=== PATIENT | female | born 1940 | race Caucasian/White ===

== ENCOUNTER 2017-04-18 05:57 | Day surgery (SDC) | payer MEDICARE, BC ==
[2017-04-16 09:20] LABS: HEMOGLOBIN 13.3 g/dL (12.0-16.0)
[2017-04-16 09:25] LABS: BUN (BLOOD UREA NITROGEN) 15 MG/DL (6-23); CALCIUM, SERUM 9.5 MG/DL (8.5-10.4); CHLORIDE, SERUM 108 MMOL/L (96-112); CO2 (CARBON DIOXIDE) 33 MMOL/L (24-34); CREATININE 0.85 MG/DL (0.55-1.02); GFR AFRICAN AMERICAN 77 ML/MIN (>=60); GFR NON AFRICAN AMERICAN 66 ML/MIN (>=60); GLUCOSE, SERUM 97 MG/DL (60-99); POTASSIUM, SERUM 4.5 MMOL/L (3.5-5.3); SODIUM, SERUM 142 MMOL/L (135-148)
--- NOTE | ~2017-04-18 | OP ---
Record Of Operation [facility] [address] [place]. [address] NAME: QUENTIN RAMIREZ : 38 STATUS : [facility]#: [id number] AGE: 76 ADM/REG DATE : 04/18/17 MR#: [id number] REPORT SERV DATE: 04/19/17 DICTATED BY: VIRGILIO SORIANO DATE: 04/18/17 REPORT STATUS : Draft TRANSCRIBED BY: MODL DATE: 04/18/17 DATE OF PROCEDURE: 04/18/2017 PREOPERATIVE DIAGNOSIS: Sialoadenitis with sialolithiasis in the right Laurel's duct. POSTOPERATIVE DIAGNOSIS: Sialoadenitis with sialolithiasis in the right Laurel's duct. PROCEDURES: Sialolithotomy, right Laurel's duct. SURGEON: Virgilio Soriano M.D. ANESTHESIA: General endotracheal anesthesia was utilized. FINDINGS: 3 mL blood loss, 2 mm to 3 mm [place]'s duct stone noted. Sialolithotomy was performed. COMPLICATIONS: None. INDICATIONS FOR PROCEDURE: A 76-year-old female with recurrent right submandibular gland infections. CT scan of the neck showed a 2 mm to 3 mm duct in the distal floor of mouth, just adjacent to the puncta. She has indications for procedure. She was described the risks and benefits of the procedure including blood loss, infection, risk of anesthesia, pain, bleeding postoperatively, need for further operations, possibility is submandibular gland excision due to difficulty getting stone out. She voiced understanding and signed the consent. The consent was placed in the chart at the time of operation. DESCRIPTION OF PROCEDURE: The patient was wheeled to the OR suite, placed on the OR table in supine position. She was intubated and placed under general endotracheal anesthesia without difficulty. We would prep and drape the patient in a standard fashion for the procedure to be done using loupe magnification and headlights. I began using a small lacrimal duct probe set and put a smallest probe into her puncta and dilated the puncta successively with larger probes. Then using 11 blade, I cut down on the probe, the largest probe that I placed was in the duct. I identified the duct, made a further incision using a 11 blade and opened the duct, made about a 2 cm to 2.5 cm incision using the 15 blade in the floor of mouth and achieved hemostasis in this area and then I would suture the edges of the duct to the edges of the mucosa of the floor of mouth, both superiorly and inferiorly. I placed a on the duct and dilated the duct using the that identified the 2 mm to 3 mm stone. We then taken from the floor of mouth a specimen on the table to be sent for permanent path. I then placed a couple more sutures to suture the mucosa of the duct with floor of mouth and irrigated all areas achieving hemostasis. When complete, floor of mouth was dried, any instrumentation was removed including dilators and she was returned to care of the anesthesiologist. Estimated blood loss 300 mL with crystalloid given. She was subsequently awoken, extubated, and stably transferred to recovery, and no complications. The patient tolerated the procedure well. Record Of Operation [facility] [address] [facility] [place]. [address] NAME: QUENTIN RAMIREZ : 38 STATUS : [facility]#: [id number] AGE: 76 ADM/REG DATE : 04/18/17 MR#: [id number] REPORT SERV DATE: 04/19/17 DICTATED BY: VIRGILIO SORIANO DATE: 04/18/17 REPORT STATUS : Draft TRANSCRIBED BY: DEANGELO DATE: 04/18/17 STEVE/DEANGELO Virgilio Soriano M.D. / [id number] CC: Caden Oleary M.D.
[~2017-04-18 05:57] MED LIST: ASAB PO; CARTIA XT120 MG/24 PO; CEFT5 PO; FISH OIL1200 MG PO; LISINOPRIL40 MG PO; MIRALAX POWDER1 PKT PO; MULTIPLE VIT PO; NORV10 PO; TOPXL100 PO; TOPXL50 PO; VITAMIN D31000 UNIT PO; XALAT OPH
== END 2017-04-18 13:35 | disposition home or self-care (01) ==
LOC: SDC 05:57
PROVIDERS: Otolaryngology
PROC: 0CCG0ZZ Extirpation of Matter from Right Submaxillary Gland, Open Approach (ICD-10-PCS; principal; 2017-04-18 07:15)
DX: K11.5 Sialolithiasis (principal); I10 Essential (primary) hypertension; H40.9 Unspecified glaucoma; I34.0 Nonrheumatic mitral (valve) insufficiency; H26.9 Unspecified cataract; Z90.711 Acquired absence of uterus with remaining cervical stump; Z98.890 Other specified postprocedural states; Z87.01 Personal history of pneumonia (recurrent); Z88.2 Allergy status to sulfonamides; Z79.899 Other long term (current) drug therapy; Z79.82 Long term (current) use of aspirin
CPT/HCPCS: 80048; 85014; 85018; 88300; 93005; 94640; A9270-GY; J0690; J2405; J2710; J3010